=== PATIENT | male | born 1995 | race Caucasian/White ===

== ENCOUNTER 2017-05-01 18:44 | Emergency (ER) | payer MEDICAID, SELFPAY ==
[2017-05-01] MEDS ORDERED: Benzonatate 100 MG CAP ONE (20:21)
[2017-05-01] MEDS ORDERED: HYDROcodone/Acetaminophen 10/325 mg Tablet ONE (20:21)
[2017-05-01] MEDS ORDERED: AMOXicillin 250 MG CAP ONE (20:21)
[2017-05-01] MEDS ORDERED: Naproxen 500 MG TAB ONE (20:21)
== END 2017-05-01 20:30 | disposition home or self-care (01) ==
LOC: MADERS 18:44
DX: J20.9 Acute bronchitis, unspecified (principal); J45.909 Unspecified asthma, uncomplicated; F17.210 Nicotine dependence, cigarettes, uncomplicated; F31.9 Bipolar disorder, unspecified; F90.9 Attention-deficit hyperactivity disorder, unspecified type
CPT/HCPCS: 99283

== ENCOUNTER 2017-06-02 12:24 | Emergency (ER) | payer MEDICAID, SELFPAY ==
[2017-06-02] MEDS ORDERED: Cephalexin 500 MG CAP ONE (14:05)
[2017-06-02] MEDS ORDERED: Triple Antibiotic Oint 1 GM Packet ONE (14:05)
[2017-06-02] MEDS ORDERED: Sulfameth/Trimethoprim DS 800-160mg TAB ONE (14:05)
== END 2017-06-02 14:10 | disposition home or self-care (01) ==
LOC: MADERS 12:24
DX: L03.116 Cellulitis of left lower limb (principal); J45.909 Unspecified asthma, uncomplicated; F31.9 Bipolar disorder, unspecified; F17.210 Nicotine dependence, cigarettes, uncomplicated
CPT/HCPCS: 87070; 87077; 87186; 87205; 99283

== ENCOUNTER 2017-07-15 20:10 | Emergency (ER) | payer SELFPAY ==
[2017-07-15] MEDS ORDERED: Ibuprofen 800 MG TAB ONE (21:33)
== END 2017-07-15 21:35 | disposition home or self-care (01) ==
LOC: MADERS 20:10
DX: S00.01XA Abrasion of scalp, initial encounter (principal); J45.909 Unspecified asthma, uncomplicated; F31.9 Bipolar disorder, unspecified; F90.9 Attention-deficit hyperactivity disorder, unspecified type; F17.210 Nicotine dependence, cigarettes, uncomplicated; W18.30XA Fall on same level, unspecified, initial encounter
CPT/HCPCS: 99283

== ENCOUNTER 2017-09-08 18:24 | Emergency (ER) | payer SELFPAY ==
[2017-09-08] MEDS ORDERED: Clindamycin 150 MG CAP ONE (19:36)
== END 2017-09-08 19:42 | disposition home or self-care (01) ==
LOC: MADERS 18:24
DX: L03.113 Cellulitis of right upper limb (principal); J45.909 Unspecified asthma, uncomplicated; F31.9 Bipolar disorder, unspecified; F17.210 Nicotine dependence, cigarettes, uncomplicated; Z79.899 Other long term (current) drug therapy
CPT/HCPCS: 99283

== ENCOUNTER 2017-10-05 14:32 | Emergency (ER) | payer SELFPAY ==
[2017-10-05] MEDS ORDERED: HYDROcodone/Acetaminophen 10/325 mg Tablet ONE (15:57)
[2017-10-05] MEDS ORDERED: Naproxen 500 MG TAB ONE (15:58)
--- NOTE | 2017-10-05 16:24 | CT ---
CT LUMBAR SPINE NONCONTRAST: History: Low back pain. FINDINGS: Vertebral body height and alignment are maintained. No acute fracture or dislocation. Mild osteophyto sis and mild disc bulges. No focal disc herniation or nerve root compression. IMPRESSION: 1. Mild degenerative changes lumbar spine. No compression fracture or other acute abnormalities are a pparent. POS: [facility]
== END 2017-10-05 17:20 | disposition home or self-care (01) ==
LOC: MADERS 14:32
DX: M54.5 Low back pain (principal); J45.909 Unspecified asthma, uncomplicated; F31.9 Bipolar disorder, unspecified; F17.210 Nicotine dependence, cigarettes, uncomplicated; Z79.899 Other long term (current) drug therapy; X50.9XXA Other and unspecified overexertion or strenuous movements or postures, initial encounter
CPT/HCPCS: 72131

== ENCOUNTER 2021-03-08 11:07 | Emergency (ER) | payer OTHER, SELFPAY | END 2021-03-08 12:25 | disposition home or self-care (01) | LOC: MADERS 11:07 | DX: S56.911A Strain of unspecified muscles, fascia and tendons at forearm level, right arm, initial encounter (principal); R00.1 Bradycardia, unspecified; J45.909 Unspecified asthma, uncomplicated; F17.210 Nicotine dependence, cigarettes, uncomplicated; V89.2XXA Person injured in unspecified motor-vehicle accident, traffic, initial encounter | CPT/HCPCS: 93005 ==

== ENCOUNTER 2023-04-23 13:07 | Emergency (ER) | payer SELFPAY ==
[2023-04-23 15:07] LABS: #Basophils 0.1 thou/uL (0.0-0.2); #Eosinphils 0.7 thou/uL (0.0-0.7); #Lymphocytes 2.3 thou/uL (1.20-3.40); #Monocytes 0.5 thou/uL (0.11-0.59); #Neutrophils 4.1 thou/uL (1.40-6.50); %Basophils 1.3 % (0.0-1.0); %Eosinophils 8.8 % (0.0-10.0); %Lymphocytes 30.2 % (21.0-51.0); %Monocytes 6.1 % (0.0-10.0); %Neutrophils 53.6 % (42.0-75.0); Hematocrit 48.8 % (42.0-52.0); Hemoglobin 16.1 g/dL (14.0-18.0); Mean Corpuscular Hemoglobin 29.6 pg (27.0-31.0); Mean Corpuscular Volume 89.9 fl (78.0-98.0); Mean Platelet Volume 7.7 fL (7.4-10.4); Platelet Count 272 10x3/uL (130-400); RBC Distribution Width 11.9 % (11.5-14.5); Red Blood Cell (RBC) Count 5.43 mill/uL (4.70-6.10); White Blood Cell (WBC) Count 7.7 10x3/uL (4.8-10.8)
[2023-04-23] MEDS ORDERED: Cefepime 2 GM VIAL ONE (15:09)
[2023-04-23] MEDS ORDERED: Lactated Ringer's 1,000 ML ONE (15:09)
[2023-04-23] MEDS ORDERED: Sodium Chloride 0.9% 100 ML ONE (15:09)
[2023-04-23 15:22] LABS: ALT (SGPT) 66 U/L (8-55); AST (SGOT) 30 U/L (5-34); Albumin 4.5 g/dL (3.5-5.0); Alkaline Phosphatase 62 U/L (40-110); Anion Gap 11 mmol/L (10-20); BUN (Urea Nitrogen) 24 mg/dL (8.9-20.6); Bilirubin, Total 1.3 mg/dL (0.2-1.2); Calc. Creatinine Clearance 0 mL/min (70-130); Calcium 9.7 mg/dL (7.8-10.44); Carbon Dioxide 24 mmol/L (22-29); Chloride 107 mmol/L (98-107); Estimated GFR 109; Globulin 3.2 g/dL (2.4-3.5); Glucose 92 mg/dL (70-105); Potassium 4.3 mmol/L (3.5-5.1); Protein, Total 7.7 g/dL (6.0-8.3); Sodium 138 mmol/L (136-145)
[2023-04-23] MEDS ORDERED: Vancomycin 1 GM VIAL ONE (15:41)
[2023-04-23] MEDS ORDERED: Sodium Chloride 0.9% 500 ML ONE (15:41)
== END 2023-04-23 18:05 | disposition short-term general hospital (02) ==
LOC: MADERS 13:07
DX: M86.9 Osteomyelitis, unspecified (principal); J45.909 Unspecified asthma, uncomplicated; F17.210 Nicotine dependence, cigarettes, uncomplicated
CPT/HCPCS: 80053; 83605; 85025; 86140; 87040; 87070; 87205; 96365; 96366; 96367; J0692; J3370; J3490; J7030; J7120